=== PATIENT | female | born 1990 | race African-American/Black ===

== ENCOUNTER 2018-02-28 14:32 | Emergency (ER) | payer SELFPAY ==
[2018-02-28 14:48] VITALS: BMI 24.9
[2018-02-28 14:51] VITALS: RESP 18
[2018-02-28] MEDS ORDERED: Sodium Chloride 0.9% 1,000 ML IV ONE (15:25)
--- NOTE | 2018-02-28 15:31 | C.PDOC ---
History Of Present Illness 27 year old female with no prior medical history presents to the emergency department with complaints of abdominal pain for the last three days which has risen to her uppre abdomen. Patient denies fever, chills, nausea, vomiting, and diarrhea. Patient states that she is currently on her menstrual cycle, and reports mild cramping related to menstruation. Time Seen by Provider: 02/28/18 15:20 Chief Complaint (Nursing): Abdominal Pain History Per: Patient History/Exam Limitations: no limitations Onset/Duration Of Symptoms: Days (3) Current Symptoms Are (Timing): Still Present Location Of Pain/Discomfort: Other (upper abdomen) Quality Of Discomfort: Cramping, "Pain" Associated Symptoms: denies: Fever, Chills, Nausea, Vomiting, Diarrhea Last Menstral Period: Now Past Medical History Reviewed: Historical Data, Nursing Documentation, Vital Signs Vital Signs: Last Vital Signs Temp 98.0 F 02/28/18 14:48 Pulse 90 02/28/18 14:48 Resp 18 02/28/18 14:48 BP 106/68 02/28/18 14:48 Pulse Ox 100 02/28/18 14:48 - Medical History PMH: No Chronic Diseases Surgical History: No Surg Hx Family History: States: No Known Family Hx - Social History Hx Alcohol Use: No Hx Substance Use: No - Immunization History Hx Tetanus Toxoid Vaccination: No Hx Influenza Vaccination: No Hx Pneumococcal Vaccination: No Review Of Systems Except As Marked, All Systems Reviewed And Found Negative. Constitutional: Negative for: Fever, Chills Gastrointestinal: Positive for: Abdominal Pain. Negative for: Nausea, Vomiting, Diarrhea Physical Exam - Physical Exam Appears: Non-toxic, No Acute Distress Skin: Normal Color, Warm, Dry Head: Atraumatic, Normacephalic Eye(s): bilateral: Normal Inspection, PERRL, EOMI Oral Mucosa: Moist Neck: Normal, Supple Chest: Symmetrical, No Tenderness Cardiovascular: Rhythm Regular, No Murmur Respiratory: Normal Breath Sounds, No Rales, No Rhonchi, No Wheezing Gastrointestinal/Abdominal: Soft, Tenderness (epigastric tenderness), No Gua rding, No Rebound Neurological/Psych: Oriented x3, Normal Speech, Normal Cognition ED Course And Treatment - Laboratory Results Result Diagrams: 02/28/18 16:14 02/28/18 16:14 O2 Sat by Pulse Oximetry: 100 (RA) Pulse Ox Interpretation: Normal Medical Decision Making Medical Decision Making: upper abd pain ro gastrits pancreatitis pud -beside us no e/o of cholecystitis Plan: Chemistry Bloodwork Protonix 40mg IVP NaCl IV Fluids HCG Qualitative Urine Urinalysis labs minimal leukocytosis. NO rlq ttp. no lower abd pain. pt states pain free in er, asking for PO. advise strict outpt fu and strict return precautions Disposition - Disposition Referrals: [facility] [Outside] [facility] [Outside] Ayaz Henderson MD [Staff Provider] - Disposition: HOME/ ROUTINE Disposition Time: 17:00 Condition: STABLE Additional Instructions: return to er with worsening symptoms or concerns. Prescriptions: Famotidine [Pepcid] 20 mg PO DAILY #20 tab Instructions: Acute Abdomen (Belly Pain) Forms: [employer] (Italian) - Clinical Impression Clinical Impression: Abdominal pain - Scribe Statement The provider has reviewed the documentation as recorded by the Scribe (Colton Cedeno) Provider Attestation: All medical record entries made by the Scribe were at my direction and personally dictated by me. I have reviewed the chart and agree that the record accurately reflects my personal performance of the history, physical exam, medical decision making, and the department course for this patient. I have also personally directed, reviewed, and agree with the discharge instructions and disposition.
[2018-02-28] MEDS ORDERED: Sodium Chloride 0.9% 1,000 ML ONE (16:18)
[2018-02-28 16:20] LABS: BASO # 0.1 K/uL (0.0-0.2); BASO % 0.5 % (0.0-2.0); EOS # 0.2 K/uL (0.0-0.7); EOS % 1.7 % (0.0-4.0); HEMOGLOBIN 13.7 g/dL (11.0-16.0); LYMPH # 4.1 K/uL (1.0-4.3); LYMPH % 36.9 % (20.0-40.0); MEAN CELL VOLUME 86.6 fL (81.0-99.0); MEAN CORPUSCULAR HEMOGLOBIN 29.7 pg (27.0-31.0); MEAN CORPUSCULAR HGB CONC 34.3 g/dL (33.0-37.0); MEAN PLATELET VOLUME 7.7 fL (7.2-11.7); MONO # 0.8 K/uL (0.0-0.8); MONO % 6.8 % (0.0-10.0); NEUT % 54.1 % (50.0-75.0); NRBC % 0.1 % (0.0-2.0); RBC 4.61 Mil/uL (3.80-5.20); WHITE BLOOD COUNT 11.1 K/uL (4.8-10.8)
[2018-02-28 16:26] LABS: SQUAMOUS EPITHIAL < 1 /hpf (0-5); URINE BACTERIA RARE (<OCC); URINE BILIRUBIN NEGATIVE (NEGATIVE); URINE BLOOD 3+ (NEGATIVE); URINE CLARITY Clear (Clear); URINE COLOR Straw (YELLOW); URINE GLUCOSE (UA) NORMAL (Normal); URINE LEUKOCYTE ESTERASE NEG Leu/uL (Negative); URINE PROTEIN NEGATIVE (NEGATIVE); URINE UROBILINOGEN NORMAL mg/dL (0.2-1.0)
[2018-02-28 16:29] LABS: INR 1.1; PROTHROMBIN TIME 11.9 SECONDS (9.7-12.2)
[2018-02-28 16:33] LABS: HCG,QUALITATIVE URINE NEGATIVE (NEGATIVE)
[2018-02-28 16:35] LABS: ALB/GLOB RATIO 1.5 (1.0-2.1); ALBUMIN 4.8 g/dL (3.5-5.0); ALT/SGPT 10 U/L (9-52); AST/SGOT 17 U/L (14-36); BILIRUBIN,DIRECT 0.3 mg/dL (0.0-0.4); BLOOD UREA NITROGEN 12 mg/dL (7-17); CALCIUM 9.2 mg/dl (8.6-10.4); GFR NON-AFRICAN AMERICAN > 60; LIPASE 77 U/L (23-300)
[2018-02-28 17:20] VITALS: BP 96/64; PULSE 96; TEMP 98.8
[2018-02-28 21:29] VITALS: O2SAT 100
== END 2018-02-28 17:20 | disposition home or self-care (01) ==
LOC: C.ER 14:32
DX: R10.9 Unspecified abdominal pain (principal)
CPT/HCPCS: 80053; 81001; 82248; 83690; 84703; 85025; 85610; 85730; 96361; 96374; 99285; C9113; J7030